=== PATIENT | male | born 1960 | race Caucasian/White ===

== ENCOUNTER → 2024-03-16 | Outpatient (CLI) | payer BC, SELFPAY | END | disposition home or self-care (01) | PROVIDERS: PCP Nurse Practitioner Adult Health; Referring Provider Nurse Practitioner; Visit Provider Nurse Practitioner | DX: R97.20 Elevated prostate specific antigen [PSA] (principal) | CPT/HCPCS: 36415; 84153 ==

== ENCOUNTER → 2024-04-01 | Outpatient (CLI) | payer BC, SELFPAY ==
--- NOTE | 2024-04-01 | IMM_PTH ---
PATIENT: JV GALINDO LOC: BLACK U#:[id number] AGE/SX: 64/M ROOM: RE04/01/[address]: Dr. Dillon Arredondo MD : 1960 BED: DIS: 04/01/2024 SPEC #: [id number] RECD: 04/05/24 11:19 STATUS: SOUKishor REQ #: [id number] LYNDSEY: 04/01/24 00:[address]: Dillon Arredondo DEPT: IMMUNOHISTOCHEMISTRY RECD BY: Jaylen Perez ENTERED: 04/05/24 11:20 SP TYPE: IMMUNO OTHR DR: NATHAN HERMOSILLO Tissues: A - PROSTATE RIGHT D - PROSTATE LEFT E - PROSTATE LEFT F - PROSTATE LEFT Procedures: 34BE12 (add) P40 (add) P40 (initial) PHYSICIAN & INSTITUTION [place] [id number] SPECIMEN INFORMATION: Tissue Source: A- Prostate right apex, D- Prostate left apex, E- Prostate left mid, F- Prostate left base Clinical Info: Elevated PSA Specimen Number: [id number] A, D, E, F CPT code: 33553,20083n7 METHODOLOGY: Deparaffinized sections of prefer/formalin-fixed tissue or PAP/DQ stained slides are incubated with monoclonal/polyclonal antibodies/oligonucleotide probes. Localization is made via biotin free immunoperoxidase method. Appropriate controls are performed and reacted as expected. Results on target cell population are indicated in the following table: RESULTS: ANTIBODY / CLONE RESULT Block A P40 (BC28) negative 34BE12 (34BE12) negative Block D P40 (BC28) negative 34BE12 (34BE12) negative Block E P40 (BC28) negative 34BE12 (34BE12) negative Block F P40 (BC28) negative 34BE12 (34BE12) negative These tests were developed and their performance characteristics determined by [facility]. They may not have been cleared or approved by the U.S. Food and Drug Administration. The FDA has determined that such clearance or approval is not necessary. The above immunohistochemical/dualISH markers are ordered and reviewed by the Pathologist. INTERPRETATION: A. Prostate, right apex, core biopsy: Adenocarcinoma. D. Prostate, left apex, core biopsy: Adenocarcinoma. E. Prostate, left mid, core biopsy: Adenocarcinoma. F. Prostate, left base, core biopsy: Adenocarcinoma. AM/mr 04/06/2024
--- NOTE | 2024-04-01 08:00 | PROSBIL_PTH ---
PATIENT: JV GALINDO LOC: BLACK U#:[id number] AGE/SX: 64/M ROOM: RE04/01/[address]: Dr. Dillon Arredondo MD : 1960 BED: DIS: 04/01/2024 SPEC #: [id number] RECD: 04/02/24 08:09 STATUS: INDIRA RESotero #: [id number] LYNDSEY: 04/01/24 08:[address]: Dillon Arredondo DEPT: SURGICAL PATHOLOGY RECD BY: Halle Vasquez ENTERED: 04/02/24 08:09 SP TYPE: PROST BX KEVIN DR: NATHAN HERMOSILLO Tissues: A - PROSTATE RIGHT B - PROSTATE RIGHT C - PROSTATE RIGHT D - PROSTATE LEFT E - PROSTATE LEFT F - PROSTATE LEFT Procedures: PROSTATE BX HEADER OPERATION: Prostate biopsy PRE-OP DIAGNOSIS: Elevated PSA TISSUE SUBMITTED: A - Right apex, B - Right mid, C - Right base, D - Left apex, E - Left mid, F - Left base MICROSCOPIC DIAGNOSIS A. Right prostate, apex, core biopsy: Adenocarcinoma. Maynor grade: 4+3 (7) Cores involved: 1/1 Tissue involved: 35% Greatest tumor length: 3.5 millimeters See comment. B. Right prostate, mid, core biopsy: Adenocarcinoma. Maynor grade: 3+3 (6) Cores involved: / Tissue involved: 65% Greatest tumor length: 4.5 millimeters Perineural invasion- Present C. Right prostate, base, core biopsy Bening prostate tissue. D. Left prostate, apex, core biopsy: Adenocarcinoma. Maynor grade: 3+4 (7) Cores involved: 2/ Tissue involved: 60% Greatest tumor length: 3.1millimeters See comment. E. Left prostate, mid, core biopsy: Adenocarcinoma. Maynor grade: 3+4 (7) Cores involved: / Tissue involved: 50% Greatest tumor length: 5.0millimeters See comment. F. Left prostate, base, core biopsy: Adenocarcinoma. Clanton grade: 3+4 (7) Cores involved: / Tissue involved: 50 % Greatest tumor length: 3.1millimeters See comment. AM/ 04/05/2024 COMMENT A, D, E, F. Immunohistochemistry ([id number]) supports the above diagnosis. Case has been reviewed in consultation with Dr. Garcia who concurs with the above diagnosis. IDC:SJ MICROSCOPIC DESCRIPTION Slides are reviewed. GROSS DESCRIPTION A - Received is one container designated prostate, right apex. The specimen consists of one elongated fragments of light dumont-white soft tissue measuring 1.5 cm in length and 0.1 cm in diameter. The specimen is totally submitted in one cassette. B - Received is one container designated prostate, right mid. The specimen consists of one elongated fragments of light dumont-white soft tissue measuring 0.9 cm in length and 0.1 cm in diameter. The specimen is totally submitted in one cassette. C - Received is one container designated prostate, right base. The specimen consists of one elongated fragments of light dumont-white soft tissue measuring 1.2 cm in length and 0.1 cm in diameter. The specimen is totally submitted in one cassette. D - Received is one container designated prostate, left apex. The specimen consists of two elongated fragments of light dumont-white soft tissue measuring 0.3 and 0.4 cm in length and 0.1 cm in diameter. The specimen is totally submitted in one cassette. E - Received is one container designated prostate, left mid. The specimen consists of one elongated fragments of light dumont-white soft tissue measuring 1.0 cm in length and 0.1 cm in diameter. The specimen is totally submitted in one cassette. F - Received is one container designated prostate, left base. The specimen consists of one elongated fragments of light dumont-white soft tissue measuring 0.9 cm in length and 0.1 cm in diameter. The specimen is totally submitted in one cassette. / BETHANY/ 04/02/2024 TC:0 [facility]: [id number]
== END | disposition home or self-care (01) ==
LOC: LABSPEC 15:38
PROVIDERS: PCP Nurse Practitioner Adult Health; Referring Provider Urology; Visit Provider Urology
DX: C61 Malignant neoplasm of prostate (principal); R97.20 Elevated prostate specific antigen [PSA]
CPT/HCPCS: 88305; 88341; 88342; G0416

== ENCOUNTER → 2024-04-15 | Outpatient (CLI) | payer BC, SELFPAY ==
--- NOTE | 2024-04-15 08:03 | NM_ITS ---
CLINICAL: 64-year-old male with history of primary prostate carcinoma. WHOLE BODY 99m Tc MDP RADIONUCLIDE BONE SCINTIGRAPHY COMPARISON: None available FINDINGS: Following the intravenous administration of 26.4 mCi of 99m Tc MDP, whole body bone images reveal: 1. Increased tracer uptake is noted in the mid cervical spine posteriorly on the right, the first and second and fourth and fifth thoracic vertebra, the second and fourth lumbar vertebra, the bilateral knees, the left ankle, the right midfoot, the visualized portion of the right wrist, the acromioclavicular and sternoclavicular compartments of both shoulders. 2. The remaining skeletal structures are scintigraphically unremarkable with normal-appearing renal images and urinary bladder activity identified. The left lower extremity at the level of the mid tibial diaphysis demonstrates mild soft tissue hyperemia and asymmetric edema. NM/Bone Scan Whole Body IMPRESSION: 1. The increase in tracer uptake noted in the bilateral shoulders, the cervical, thoracic and lumbar spine, both knees, the left ankle, the right midfoot and right wrist is commensurate with degenerative arthropathy. 2. Soft tissue edema and hyperemia apparent in the left lower extremity may represent a presentation of soft tissue inflammation (cellulitis). Clinical examination is recommended. 3. There is no definitive scintigraphic evidence of skeletal metastatic disease on the present examination. Electronically Signed: Moses King DO at 10:26 EDT ,
== END | disposition home or self-care (01) ==
LOC: NM 08:03
PROVIDERS: PCP Nurse Practitioner Adult Health; Referring Provider Urology; Visit Provider Urology
DX: C61 Malignant neoplasm of prostate (principal)
CPT/HCPCS: 78306; A9503

== ENCOUNTER → 2024-04-21 | Outpatient (CLI) | payer BC, SELFPAY ==
--- NOTE | 2024-04-21 15:58 | CT_ITS ---
STUDY: CT ABDOMEN AND PELVIS WITH CONTRAST REASON FOR EXAM: Male, 64 years old. PROSTATE CA RADIATION DOSAGE (If Supplied By Facility): CTDIvol = ( 18.24 ) mGy, DLP = ( 1246.13 ) mGycm TECHNIQUE: Transaxial images were obtained from the dome of the diaphragm to the symphysis pubis without oral contrast. IV 100mL Isovue-370 was administered. Sagittal and coronal images were reconstructed. Individualized dose optimization techniques were used for this CT. COMPARISON: None. FINDINGS: The visualized lung bases are unremarkable. Coronary calcification. There is decreased attenuation of the liver consistent with steatosis. There are multiple gallstones. Normal spleen. Normal pancreas. Normal bilateral adrenal glands. Normal right kidney. Normal left kidney. There is a small hiatal hernia. Normal small intestine. There are multiple colonic diverticula consistent with diverticulosis. The appendix is visualized and appears normal. There is scattered atherosclerotic calcification of the abdominal aorta, without a demonstrated aneurysm. Normal inferior vena cava. Normal retroperitoneum. Normal urinary bladder. There are prostatic calcifications. There is a right-sided inguinal hernia containing adipose tissue. There are diffuse degenerative changes of the visualized lumbar spine. CT/Abdomen/Pelvis W IV Cont ONLY IMPRESSION: Fatty infiltration of the liver. Multiple gallstones. Prostatic calcification. Electronically Signed: Mazni Lyons MD at 11:19 EDT ,
[2024-04-21 16:26] LABS: CREATININE FINGERSTICK < 1.0 mg/dL (0.70-1.30); EGFR FINGERSTICK > 60.0000 mL/min (>60)
== END | disposition home or self-care (01) ==
LOC: CT 15:53
PROVIDERS: PCP Nurse Practitioner Adult Health; Referring Provider Urology; Visit Provider Urology
DX: C61 Malignant neoplasm of prostate (principal)
CPT/HCPCS: 74177; Q9967

== ENCOUNTER 2024-05-21 06:36 | Day surgery (SDC) | payer BC, SELFPAY ==
[2024-05-21] VITALS (13 sets, daily range): BP systolic 77–128; BP diastolic 52–75; PULSE 59–77; RESP 16; TEMP 36.1–36.6; O2SAT 88–99; BMI 33.2
[2024-05-21] MEDS: Lactated Ringers 1,000 ML 15 ML IV (07:00)
--- NOTE | 2024-05-21 07:23 | PRE.ANES_ITS ---
ASA Classification* ASA Classification ASA Classification: 2 Assessment & Plan Anesthesia* Anesthesia Assessment Anesthesia Assessment: Discussed sedation and/or anesthesia options, risks, benefits, and alternatives with patient/parents/legal guardian/POA. Questions invited. The patient/parents/legal guardian/POA seems to understand and agrees to proceed with anesthesia plan. Reviewed the physical assessment, medical history, allergy history and patient home medications list prior to surgery/procedure/anesthetic and documented any changes. Performed airway and anesthesia risk assessments. 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 When Was Last Pacemaker Check QUESTION #4 FULL TEXT: You/Your Family Experience fever (hyperthermia) with Anesthesia Last Oral Intake Last Oral intake: Last Oral Intake NPO since 21:30 05/21/24 07:07 Meds taken in AM with sips of Yes 05/21/24 07:07 water? 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 Female No 05/19/24 09:51 HX of Motion Sickness No 05/19/24 09:51 HX of N/V After Surgery No 05/19/24 09:51 Non-Smoker Yes 05/19/24 09:51 Duration of Surgery greater Yes 05/19/24 09:51 than 60 minutes Number of Risk Factors 2 05/19/24 09:51 PONV Score Moderate Risk 05/19/24 09:51 Height & Weight Height & Weight: Anesthesia: Height & Weight Height 5 ft 10 in 05/21/24 07:07 Weight: 105 kg 05/21/24 07:07 Body Mass Index (BMI) 33.2 05/21/24 07:07 Respiratory Assessment Respiratory Assessment - tractor sweeper driver: Respiratory Tract Infection Hx - 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 Has anyone observed you stop No 05/19/24 09:51 breathing during sleep? STOP Results Negative 05/19/24 09:51 QUESTION #5 FULL TEXT : Do you snore loudly (louder than talking or can be heard through closed doors)? 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 Specify any problems Hx of Preganancy in last 3 N/A 05/19/24 09:51 Months Nurse Filling Out Transfusion VCHRISTIN 05/19/24 09:51 & Questions: Date: 05/19/24 05/19/24 09:51 Time: 09:52 05/19/24 09:51 Patient unable to answer at this time (ie. 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: /Reproductive Hx- tractor sweeper driver Hx Now Gestational Age (in weeks): EDC: Hx Hx Para Hx Section SAB Active Medications Active Medications: Current Medications Generic Name Dose Route Start Last Admin Trade Name Freq PRN Reason Stop Dose Admin Cefazolin Sodium 2 gm/ Sodium 110 mls @ 150 mls/hr 05/21/24 15:25 Chloride IV 05/21/24 16:08 PREOP ONE Lactated Ringer's 1,000 mls @ 15 mls/hr 05/21/24 07:00 05/21/24 07:00 IV 15 mls/hr .Q48H EMANUEL Administration PFSH Medical History Wears glasses DVT (deep venous thrombosis) Non-smoker Cerebral contusion Phlebitis and thrombophlebitis of other deep vessels of unspecified lower extremity Hyperlipidemia Hypertension Elevated PSA Home Medications ?Medication ?Instructions ?Recorded ?Last Taken ?Type lisinopril 10 mg tablet 10 mg PO DAILY 04/21/24 05/21/24 History rivaroxaban 20 mg tablet (Xarelto) 20 mg PO DAILY 04/21/24 05/18/24 History Allergy/AdvReac Type Severity Reaction Status Date / Time No Known Allergies Allergy Verified 05/21/24 07:04 Family History Mother Heart disease Father Parkinson disease Surgical History Hx of tonsillectomy History of hemorrhoidectomy Social History Smoking Status: Never smoker alcohol intake: never substance use type: does not use Review of Systems (Anesthesia) ROS Narrative System reviewed and no additional complaints, except as documented.
--- NOTE | 2024-05-21 08:23 | DCINST_ITS ---
Discharge Instructions Diet Discharge Diet: No restrictions Activity Discharge Activity: Return to Normal Activity and May Not Drive (while taking narcotic pain medications.) Dressing / Incision Call your doctor if you observe: Fever of 101 or Higher Follow Up Care Please Follow Up With: Dillon Arredondo MD When: Call [phone] for an appointment Test Results: Test results from this visit will be discussed in further detail at your follow- up appointment, if applicable. Discharge Plan Admission Attending Provider: Dillon Arredondo Primary Care Provider: BRITTANY DOWELL Instructions Print Language: Bengali Discharge Orders/Prescriptions Prescriptions: No Action lisinopril 10 mg tablet 10 mg PO DAILY Xarelto 20 mg tablet 20 mg PO DAILY Rx Instructions: must administer with evening meal Referrals / Follow Up: BRITTANY DOWELL CRNP [Primary Care Provider] - Disposition Disposition (needs filled in before D/C Order can be placed): Home, Self Care
--- NOTE | 2024-05-21 08:23 | PCM.HP.STD ---
HPI - General General Date of Service: 05/21/24 Chief Complaint: Prostate cancer HPI Narrative JV GALINDO, is a 64 M who presents for placement of gold markers and spacer gel for treatment of prostate cancer and planning to treat with radiation therapy [facility] Medical History Wears glasses DVT (deep venous thrombosis) Non-smoker Cerebral contusion Phlebitis and thrombophlebitis of other deep vessels of unspecified lower extremity Hyperlipidemia Hypertension Elevated PSA Home Medications ?Medication ?Instructions ?Recorded ?Last Taken ?Type lisinopril 10 mg tablet 10 mg PO DAILY 04/21/24 05/21/24 History rivaroxaban 20 mg tablet (Xarelto) 20 mg PO DAILY 04/21/24 05/18/24 History Allergy/AdvReac Type Severity Reaction Status Date / Time No Known Allergies Allergy Verified 05/21/24 07:04 Family History Mother Heart disease Father Parkinson disease Surgical History Hx of tonsillectomy History of hemorrhoidectomy Social History Smoking Status: Never smoker alcohol intake: never substance use type: does not use Vital Signs Vital Signs Vital Signs: 05/21/24 07:07 05/21/24 07:07 05/21/24 07:23 Temperature 97.3 F L 97.3 F L Temperature Source Temporal Pulse Rate 77 77 Respiratory Rate 16 16 Respiratory Pattern Normal Blood Pressure 113/75 113/75 Blood Pressure Mean 87 Blood Pressure Source Monitor Blood Pressure Position Sitting Blood Pressure Location Right Arm Pulse Ox 99 99 Oxygen Delivery Method Room Air Weight Weight: 105 kg Body Mass Index (BMI) 33.2
--- NOTE | 2024-05-21 08:25 | PCM.OPRPT ---
Report of Operation Date of Procedure: 05/21/24 Pre-Operative Diagnosis: prostate cancer Post-Operative Diagnosis: prostate cancer Surgery/Procedure Performed:: placement of gold markers and spacer gel Description of Surgical Findings:: In the preoperative area I reviewed with the patient how the procedure is done we talked about the risk of the procedure including the risk of infection, bleeding, migration of the spacer gel, the patient is planning to have radiation to the prostate he understands that the spacer gel has demonstrated benefit in reducing the risk of toxicity from the ration radiation to the rectum but there is no guarantees that this spacer gel will prevent any serious complications or toxicity to the rectum or bowels. After reviewing this with the patient and his family organ to proceed with placement of a spacer gel matrix. Patient was taken back to the operating room after smooth induction of anesthesia he was placed supine on the table. The genitals and perineum were prepped and draped in usual sterile fashion. I then introduced a biplanar ultrasound probe into the rectum and performed ultrasonography and identified the Denonvilliers' fascia the prostate mid base and apex and seminal vesicles. The spacer gel mix was then prepared on the back table per manufactures instruction. Under ultrasound guidance in the midline perineum a bevel needle down we advanced through the perineum below the prostate into the space of Denonvilliers' fascia. This space which could be identified by ultrasound with a bright white layer between the prostate and the rectum. I then injected a puff of normal saline to identify the space further. After I confirmed that the needle was in the correct space in the mid prostate and the space of Denonvilliers' fascia between the rectum and the prostate. Then over the course of 15 seconds the gel matrix was injected slowly there was nice separation between the prostate and the rectum at the gel matrix was injected. The position of the gel matrix was confirmed by ultrasound. Then the injection needle was removed intact. Then, the penis and testicles were prepped and draped in usual sterile fashion, ultrasound probe was placed into the rectum and biplanar ultrasound was performed on the prostate. Identified the base mid and apex of the prostate identified the transition zone prostate. Then using a needle the first furniture restorer was placed into the right base of the prostate, the second furniture restorer was placed in the left base of the prostate, and the third core marker was placed in the right apex of the prostate after all 3 markers were placed the placement of the markers were confirmed by ultrasonography. Surgeon: Dillon Arredondo Type of Anesthesia: General Estimated Blood Loss (mL): 0 Admit VTE Documentation VTE Present on Admission: No VTE Mechan Device Prophylaxis: SCD's VTE Pharm Prophylaxis ordered?: No
[2024-05-21] MEDS: Cefazolin 2 GM in 0.9% Normal Saline (100mL Bag) 100 ML IV (08:55)
--- NOTE | 2024-05-21 09:48 | PCM.POST.ANE ---
Anesthesia: Postop Eval I Current Vital Signs Temperature: 97.6 F Pulse Rate: 66 Blood Pressure: 79/57 Respiratory Rate: 16 Pulse Ox: 94 Oxygen Delivery Method: Room Air Assessment Airway patent: Yes Spontaneous unlabored respirations: Yes Mental status: Awake and Calm nausea: No Vomiting: No Anesthesia Complication: No Fluid Hydration Crystalloid volume administer (ml): 500 Total IV fluid infused: 500 Progress Note Anesthesia document: Postop Eval 1 completed: Yes
[2024-05-21] MEDS: Ketorolac 15 MG/ML Vial IV (09:56)
[2024-05-21] MEDS: Lactated Ringers 1,000 ML 75 ML IV (09:58)
--- NOTE | 2024-05-21 15:42 | POSTOPAN2_ITS ---
Anesthesia Postop Eval I Sum Postop Eval Completion status Anesthesia document: Postop Eval 1 completed: Yes Anesthesia Postop Eval I Summary Anesthesia Postop Eval I Summary: Anesthesia Postop Eval I: Assessment Summary Airway patent Yes 05/21/24 09:49 PEDIATRIC CRITICAL CARE NURSE.[email or web address] Spontaneous unlabored Yes 05/21/24 09:49 PEDIATRIC CRITICAL CARE NURSE.[email or web address] respirations Mental status Awake,Calm 05/21/24 09:49 PEDIATRIC CRITICAL CARE NURSE.[email or web address] nausea No 05/21/24 09:49 PEDIATRIC CRITICAL CARE NURSE.[email or web address] Vomiting No 05/21/24 09:49 PEDIATRIC CRITICAL CARE NURSE.[email or web address] Anesthesia Postop Eval I: Fluid Summary Crystalloid volume administer 500 05/21/24 09:49 PEDIATRIC CRITICAL CARE NURSE.[email or web address] (ml) Colloids volume administered ( ml) Blood Product volume administered (ml) Total IV fluid infused 500 05/21/24 09:49 PEDIATRIC CRITICAL CARE NURSE.[email or web address] Anesthesia Postop Eval I: Summary Notes Anesthesia Complication No 05/21/24 09:49 PEDIATRIC CRITICAL CARE NURSE.KIM Anesthesia Complication Comment: Post-operative progress note Anesthesia: Postop Eval II Evaluation Mental status: Awake Pain Level: 0 nausea: No Vomiting: No
--- NOTE | 2024-05-21 15:42 | PCM.POSTANE2 ---
Anesthesia Postop Eval I Sum Postop Eval Completion status Anesthesia document: Postop Eval 1 completed: Yes Anesthesia Postop Eval I Summary Anesthesia Postop Eval I Summary: Anesthesia Postop Eval I: Assessment Summary Airway patent Yes 05/21/24 09:49 DUAL RATE DEALER.[email or web address] Spontaneous unlabored Yes 05/21/24 09:49 DUAL RATE DEALER.[email or web address] respirations Mental status Awake,Calm 05/21/24 09:49 DUAL RATE DEALER.[email or web address] nausea No 05/21/24 09:49 DUAL RATE DEALER.[email or web address] Vomiting No 05/21/24 09:49 DUAL RATE DEALER.[email or web address] Anesthesia Postop Eval I: Fluid Summary Crystalloid volume administer 500 05/21/24 09:49 DUAL RATE DEALER.JBLOU (ml) Colloids volume administered ( ml) Blood Product volume administered (ml) Total IV fluid infused 500 05/21/24 09:49 DUAL RATE DEALER.[email or web address] Anesthesia Postop Eval I: Summary Notes Anesthesia Complication No 05/21/24 09:49 DUAL RATE DEALER.KIM Anesthesia Complication Comment: Post-operative progress note Anesthesia: Postop Eval II Evaluation Mental status: Awake Pain Level: 0 nausea: No Vomiting: No
== END 2024-05-21 12:00 | disposition home or self-care (01) ==
LOC: SDC 06:37 → AC 06:39
PROVIDERS: PCP Nurse Practitioner Adult Health; Referring Provider Urology; Visit Provider Urology
PROC: (CPT 55874; principal; 2024-05-21 08:40)
DX: C61 Malignant neoplasm of prostate (principal); I10 Essential (primary) hypertension; Z79.01 Long term (current) use of anticoagulants; Z79.899 Other long term (current) drug therapy; Z86.718 Personal history of other venous thrombosis and embolism
CPT/HCPCS: 55876; J7120; J2405

== ENCOUNTER → 2024-06-03 | Outpatient (CLI) | payer BC, SELFPAY ==
--- NOTE | 2024-06-03 14:56 | MRI_ITS ---
EXAMINATION: MR Prostate WO/W Contrast COMPARISON: PET CT 05/18/2024 CLINICAL HISTORY: 64 yo M with history of prostate carcinoma and elevated PSA Most recent PSA = not provided TECHNIQUE: Standard prostate MR protocol was used before and after administration of 20 cc of IV Clariscan. FINDINGS: Prostate volume: 24 cc PSA density: PSA level not provided Length of membranous urethra: 13 mm Post-biopsy hemorrhage: Yes Multiparametric MR evaluation: Heterogeneous appearance of the central gland is consistent with benign prostatic hyperplasia. T2 hyperintense space OAR gel is seen posterior to the prostate. Lesion 1: LOCATION - there is an irregularly-shaped 2.2 x 1.3 x 2.5 cm moderately T2 hypointense lesion in the left and right anterior and posterior transitional zones from near base to near apex. It is mildly bright on DWI and moderately dark on ADC map. T2 - 5 DWI - 4 DCE - positive Overall PI-RADS v2 score = 5 Capsular margin and neurovascular bundle: No definite macrocapsular extension. Seminal vesicles: Not involved. Lymph nodes: 3 mm left pelvic sidewall lymph node (image 9, series 6). Bones: No suspicious lesions in the field of view. OTHER: Apparent asymmetric wall thickening of the right posterolateral upper rectum (images 7 through 10, series 10). MRI/Pelvis W/WO Contrast IMPRESSION: 2.5 cm irregular PI-RADS 5 lesion in the bilateral anterior and posterior TZ''s from mid base to mid apex. - 3 mm round left pelvic sidewall lymph node - No evidence of macroscopic extracapsular extension. - No evidence of seminal vesicle invasion. - No bladder invasion. - No suspicious bone lesions. Apparent asymmetric wall thickening of the right posterolateral upper rectum. Recommend colonoscopy. Electronically Signed: Patrick Tellez MD at 4:41 EDT ,
[2024-06-03 15:38] LABS: CREATININE FINGERSTICK < 1.0 mg/dL (0.70-1.30); EGFR FINGERSTICK > 60.0000 mL/min (>60)
== END | disposition home or self-care (01) ==
LOC: MRI 14:54
PROVIDERS: PCP Nurse Practitioner Adult Health; Referring Provider Student in an Organized Health Care Education/Training Program; Visit Provider Student in an Organized Health Care Education/Training Program
DX: C61 Malignant neoplasm of prostate (principal)
CPT/HCPCS: 72197; A9575; A4216

== ENCOUNTER → 2025-05-18 | Outpatient (CLI) | payer BC, SELFPAY ==
[2025-05-18 13:04] LABS: PSA,Total- Diagnostic < 0.02 ng/mL (0.00-4.00)
== END | disposition home or self-care (01) ==
LOC: LAB 11:39
PROVIDERS: PCP Nurse Practitioner Adult Health; Referring Provider Urology; Visit Provider Urology
DX: C61 Malignant neoplasm of prostate (principal)
CPT/HCPCS: 36415; 84153

== ENCOUNTER 2025-08-31 11:30 | Outpatient (RCR) | payer BC, SELFPAY ==
[2025-08-25 08:07] VITALS: BP 125/71; PULSE 93; RESP 16; TEMP 36.8; BMI 35.4
--- NOTE | 2025-08-25 12:39 | PCM.WC.HP ---
History of Present Illness Date of Service: 08/25/25 Chief Complaint: Left leg ulcer History of Wound: Mr. Gramajo is a 65-year-old who was referred to the wound center by his primary care due to left leg drainage and redness. He states that he has had swelling and redness ongoing for over a year due to history of clots. However, couple of weeks/months ago he noted increased redness and drainage. Recently seen by his PCP and was started on Augmentin and Bactrim for cellulitis. Denies any history of injury. Recently started on metformin due to elevated blood glucose levels. He was advised by his primary to leave it open and keep it elevated which he states that he has been doing. He denies chills, fever or otherwise feeling of unwell. [facility] [place] Medical History (Updated 08/25/25 @ 12:[address] Axel Yoder MD) Type 2 diabetes mellitus History of DVT of lower extremity Edema of left lower extremity Ulcer of left lower extremity with fat layer exposed Wears glasses DVT (deep venous thrombosis) Non-smoker Cerebral contusion Phlebitis and thrombophlebitis of other deep vessels of unspecified lower extremity Hyperlipidemia Hypertension Elevated PSA Home Medications ?Medication ?Instructions ?Recorded ?Last Taken ?Type lisinopril 10 mg tablet 10 mg PO DAILY 04/21/24 05/21/24 History rivaroxaban 20 mg tablet (Xarelto) 20 mg PO DAILY 04/21/24 05/18/24 History cetirizine 10 mg tablet 10 mg PO DAILY 08/25/25 Unknown History lisinopril 10 1 tab PO DAILY 08/25/25 Unknown History mg-hydrochlorothiazide 12.5 mg tablet metformin 500 mg tablet,extended 500 mg PO DAILY 08/25/25 Unknown History release 24 hr silver sulfadiazine 1 % topical applic topical BID 08/25/25 Unknown History cream Allergy/AdvReac Type Severity Reaction Status Date / Time No Known Allergies Allergy Verified 05/23/25 11:03 Family History Mother Heart disease Father Parkinson disease Surgical History Hx of tonsillectomy History of hemorrhoidectomy Social History Smoking Status: Never smoker alcohol intake: never substance use type: does not use ROS Constitutional Constitutional: Denies body ache(s), change in weight, fatigue, fever(s), frequent falls, headache(s), increased appetite or poor appetite Eyes Eyes: Denies blind spots, bloody eye, change in eye color, change in vision, discharge from eye(s), discongugate gaze or double vision ENT HEENT: Denies dysphagia, facial pain, foreign body in nose, halitosis, hearing loss, hoarseness, lip swelling or loss taste/smell Cardiovascular Cardiovascular: Denies abdominal edema, abdominal pain, cold extremities, cyanosis, diaphoresis, dizziness or dyspnea at rest Respiratory/Chest Respiratory/Chest: Denies change in phlegm color, chest congestion, chest tightness, difficulty clearing secretions, dry cough, dusky skin, hemoptysis or hoarseness Gastrointestinal Gastrointestinal: Denies change in bowel habits, chewing difficulty, constipation, cramping, diarrhea, dry heaves, excessive flatus or fecal incontinence Genitourinary Genitourinary: Denies abdominal discomfort, anuria, burning urination, contractions or flank pain Musculoskeletal Musculoskeletal: Reports limited range of motion; Denies deformity, muscle spasms, muscle weakness, tingling or tremors Integumentary Integumentary: Reports non-healing lesions, skin ulcer and skin swelling; Denies hirsutism or jaundice Neurologic Neurologic: Denies abnormal movements, abnormal speech, behavior changes, disequilibrium, dizziness, focal weakness, frequent falls, headache(s), lack of coordination or loss of vision Psychiatric Psychiatric: Denies auditory hallucinations, behavioral changes, difficulty concentrating, hallucinations, hopelessness, mood swings or panic attacks Endocrine Endocrinology: Denies cold intolerance, deepening of the voice, excessive sweating, flushing, increase in ring/shoe/hat size or palpitations Allergic/Immunologic Allergic/Immunologic: Denies lip swelling, rhinitis, throat swelling, tongue swelling, hives, urticaria or wheezing Vital Signs Vital Signs Vital Signs: 08/25/25 08:07 Temperature 98.2 F Temperature Source Oral Pulse Rate 93 Respiratory Rate 16 Blood Pressure 125/71 H Blood Pressure Mean 89 Blood Pressure Source Monitor Blood Pressure Position Sitting Blood Pressure Location Left Arm Oxygen Delivery Method Room Air Weight Weight: 240 lb Body Mass Index (BMI) 35.4 Physical Exam Const alert, oriented x3 and no apparent distress General Appearance: cooperative, comfortable and well kempt HEENT normocephalic and head/scalp atraumatic Eyes EOMs intact bilaterally General Eye: normal appearance of both eyes Neck full ROM General: normal visual inspection Resp normal respiratory effort and normal air movement Effort and Inspection: able to speak in complete sentences Cardio regular rate, regular rhythm, S1 normal heart sound and S2 normal heart sound GI soft to palpation and non-tender Extremity General Extremity: edema Skin Wounds: wounds noted size Size: See clinical note, bed with slough, edematous, necrotic and with undermining, margins poorly approximated, no odor, open and surrounding erythema Neuro oriented x3, CN's II-XII intact bilaterally, moves all extremities and no focal motor deficits Psych mental status grossly normal, thought process normal, cooperative and affect normal Debridement Note Debridement Note Wound debrided: Left samuels Type of Debridement: Excisional debridement Anesthesia Used: 5% Lidocaine Gel Depth: Down to and including healthy tissue and in the subcutaneous layer Percentage of wound debrided: 100 Instrument Used: 5mm curette Tissue Removed: Slough and devitalized tissue Severity: Fat Layer Exposed Amount of bleeding with debridement: Mild Bleeding Controlled with: Pressure Patient tolerated procedure: Patient tolerated procedure well Post-Debridement Measurements and Additional Note: Post-Debridement Measurements/Treatment - Nurse 1 - General Ulcer Assessment Start: 08/25/25 08:06 Freq: Status: Active Protocol: JANNY Activity Type Activity Date Activity User E-sign Co-sign Detail Recorded Client Recorded Date Recorded By Document 08/25/25 08:07 [id number] 08/25/25 08:23 08/25/25 08:07 - Today's Visit Information Type of service Initial Visit Arrival Mode Ambulatory Patient Identification Verified (Name & Yes ) Patient Requires Transmission-Based No Precautions Safety Precautions Fall Prevention Height and Weight Height 5 ft 9 in Weight 240 lb Weight in Pounds 240.0 lbs Weight Measurement Method Estimated by Patient Body Mass Index (BMI) 35.4 BMI Classification Obese Vital Signs Temperature (97.8 F-99.1 F) 98.2 F Temperature Source Oral Pulse Rate (60-100) 93 Pulse Location Monitor Respiratory Rate (12-18) 16 Respiratory rate source Observation Oxygen Delivery Method Room Air Blood Pressure (90/60-120/80) 125/71 H Blood Pressure Mean 89 Source Monitor Position Sitting Blood Pressure Location Left Arm History Since Last Visit- (Skip if this is Patient's initial visit) Left Footwear Regular Shoe Right Footwear Regular Shoe Pain Scale: 0-10 Numeric Is Patient Pain Free? Yes Lower Extremity Assessment/ Foot Assessment/ Toe Nail Assessment Left -Polpliteal Pulses Palpable Yes -Posterior Tibial Palpable Yes -Dorsalis Pedis Palpable Yes -Extremity Color Normal -Hair Growth on Legs Yes -Hair Growth on Toes Yes -Temperature of Extremity Warm -Capillary Refill Less than 3 Seconds -Other Deformity No -Prior Foot Ulcer No -Charcot Joint No -Prior Amputation No -Thick No -Discolored No -Deformed No -Improper Length & Hygeine No Neuropathy Assessment Feet - Top Side and Bottom <Entered> (a) Communication Assessment Supervisor Paint Required No Able to Read Yes Able to Write Yes Communication Tools None Caregiver Communication Skills No Impairment Impairment Right Hearing Abillity Normal Left Hearing Abillity Normal Visual Assistive Devices Glasses Teaching Assessment Preferences Verbal, Demonstration Barriers to Learning None Readiness To Learn Excellent Willingness to Engage in Self Management High Activies Readiness to Engage in Self Management High Activities Anxiety Level Calm Cooperation Cooperative Perception Coherent Interest in Health Problem Asks Questions Education Importance Acknowledges Need Does Patient Smoke tobacco or other No substances Functional Assessment Recent Decline in Ability to Perform Denies Any Declines Culture/Muslim/Transcription Manager Cultural/Muslim Needs that may affect No Treatment Plan Would you allow our hospital cuff knitter to No meet you for the purpose of spiritual/ emotional support? Transcription Manager to contact place of catholic No (a) 1 - + WC - Nurse 1 - General Ulcer Measurement Start: 08/25/25 08:06 Freq: Status: Active Protocol: Activity Type Activity Date Activity User E-sign Co-sign Detail Recorded Client Recorded Date Recorded By Document 08/25/25 08:07 [id number] 08/25/25 08:23 TS 08/25/25 08:07 Wound Center Nurse 1 #1 LLE ANTERIOR -Combined with other wound No -Current Size (cm) - Length 5.5 -Current Size (cm) - Width 3 -Current Size (cm) - Depth 0.1 -Total Square Cm 16.5 -Date of Last Picture (Recall this 08/25/25 field) -Photo Taken Yes -Undermining/Tunneling No -Circular Undermining No -Exudate Amt Medium -Exudate Type Yellow/Green -Wound Margin Distinct, Outline Attached -Necrosis Amt Large (67-100%) -Necrotic Tissue Type Adherent Slough -Structure Exposed Fascia -Texture (Becca-wound Skin Appearance) Assessed, Excoriation -Moisture (Becca-wound Skin Appearance) Assessed -Color (Becca-wound Skin Appearance) Assessed -Temperature (Becca-wound Skin No Abnormality Appearance) (Pt Warm) -Ulcer Cleansing Soap and Water -Foul Odor after Cleansing No -Anesthetic Used 5% Lidocaine Gel Point of measurement (cm from the medial 37 instep) Point of Measurement (cm from the medial 23 instep) Point of measurement (cm from the medial 43 instep) Point of Measurement (cm from the medial 27 instep) WC - Nurse 2 - General Ulcer CM Notes Start: 08/25/25 08:06 Freq: Status: Active Protocol: Activity Type Activity Date Activity User E-sign Co-sign Detail Recorded Client Recorded Date Recorded By Document 08/25/25 08:48 [id number] 08/25/25 09:00 08/25/25 08:48 Wound Center Nurse 2 #1 LLE ANTERIOR -Time 08:48 -Correct Patient Yes -Correct Side, Site, Position Yes -Correct Procedure Yes -Procedure Performed Yes -Type of Procedure Debridement -Clinical Debridement Subcutaneous -Tissue Removed Subcutaneous -Post Debridement (cm) - Length 2.0 -Post Debridement (cm) - Width 2.0 -Post Debridement (cm) - Depth 1.0 -Total Square (Post) (cm) 4.00 -Area of Debridement (cm) - Length 2.0 -Area of Debridement (cm) - Width 2.0 -Total Square (Area) (cm) 4.00 -Tunneling Yes -Tunneling Position (O'clock) 12 -Tunneling Distance (cm) 4 -Circular Undermining Yes -Wound/Ulcer Outcome Not Healed -Ulcer Cleansing Rinsed/ Irrigated with Saline -Foul Odor after Cleansing No -Bioengineered Tissue No -Bleeding Controlled with Pressure -Treatment Response Procedure Tolerated Well -Offloading No -Debridement - Subq, 1st 20sq cm Yes Pain Scale: 0-10 Numeric Is Patient Pain Free? Yes [id number] - Nurse 3 - General Ulcer D/C NN Start: 08/25/25 08:06 Freq: Status: Active Protocol: Activity Type Activity Date Activity User E-sign Co-sign Detail Recorded Client Recorded Date Recorded By Document 12/18/25 09:31 [id number] 08/25/25 09:32 TS 08/25/25 09:31 Wound Care Center Nurse 3 #1 LLE ANTERIOR -Ulcer Cleansing Rinsed/ Irrigated with Saline -Primary Dressing Applied Aquacel AG 4x4, NonAdherent Contact Layer -Other Dressing ABD -Primary Dressing Covered/Secured with Secured with Tape -Aquacel AG 4x4 1 BLE -Tubular Bandage Double Layer -Size of Tubigrip Used Size E -Size E ($) 2 Pain Scale: 0-10 Numeric Is Patient Pain Free? Yes WC - Visit Discharge Discharge Condition Stable Ambulatory Status Ambulatory Transportation Private Auto Medication Reconcilliation completed & No provided to patient/care provider Clinical Summary of Care Provided Yes Charges/Coding Visit Charges Office Visits / Consults: [id number] OV L4 New 45min Procedures Integumentary [id number]: [id number] Danelle subq tissue 20 sq cm/< Assessment/Plan Assessment/Plan (1) Ulcer of left lower extremity with fat layer exposed: CODE(S): L97.922 - Non-pressure chronic ulcer of unspecified part of left lower leg with fat layer exposed (2) Edema of left lower extremity: CODE(S): R60.0 - Localized edema (3) History of DVT of lower extremity: CODE(S): Z86.718 - Personal history of other venous thrombosis and embolism (4) Type 2 diabetes mellitus: CODE(S): E11.9 - Type 2 diabetes mellitus without complications PLAN: Plan Debridement done as documented above, procedure was well-tolerated. Some purulence noted with debridement however, no further purulent drainage following debridement. Cultures taken. As above he states that he is currently on Bactrim and Augmentin and has taken it so far for about 4 days. Not applying anything to the area and leaving it open to air and trying to keep it up/elevated. Concern for surrounding tissue injury that may require/surgical debridement however will evaluate closely for now. Apply Aquacel Ag daily, cover with Adaptic and foam dressing. Double layer Tubigrip for edema management. Concern for possible post DVT syndrome due to significant left lower extremity edema. Venous and arterial studies ordered, will review due to proximity to the bone and chronicity, an x-ray also ordered to rule out osteomyelitis. He states that he was recently started on metformin by his primary care due to diabetes, he believes he had labs done recently as well. Will request records. Compliance with dressing changes discussed. Optimal protein intake, compression and leg elevation also discussed, he voiced understanding. His questions were answered, he was advised to let us know if he had any further questions or concerns. Follow-up for a courtesy visit next week and in 3 weeks with me. This note was generated with Dr. Z dictation software. It may contain incorrect words, spelling, and punctuation that were not noted in checking the note before signing.
--- NOTE | 2025-08-26 08:50 | ART_ITS ---
Reason For Study Reason For Study: Ulcer Procedure A bilateral lower extremity continuous wave Doppler with analog waveform analysis,segmental pressures,and ankle brachial indexes without exercise. Left Segmental Pressures Left brachial= 121mmHg. Left posterior tibial artery = 164mmHg. Left dorsalis pedis artery = 158mmHg. Left digit = 105 mmHg. The left dorsalis pedis waveforms are triphasic. The left posterior tibial artery waveforms are triphasic. Right Segmental Pressures Right brachial= 113mmHg. Right posterior tibial artery = 150mmHg. Right dorsalis pedis artery = 148mmHg. Right digit = 102 mmHg. The right dorsalis pedis waveforms are triphasic. The right posterior tibial artery waveforms are triphasic. Indices The right ankle brachial index by the dorsalis pedis is 1.22. The right ankle brachial index by the posterior tibial artery is 1.24. The right digital-brachial index is 0.84. The left ankle brachial index by the dorsalis pedis is 1.31. The left ankle brachial index by the posterior tibial artery is 1.36. The left digital-brachial index is 0.87. VL/Lower Ext Art Exam w/o Exercis Interpretation Summary Triphasic Doppler waveforms are noted at ankle level bilaterally. Pulse-volume recordings appear diminished at digital level bilaterally, but satisfactory at all other levels bilaterally. Resting an kle-brachial indices are normal bilaterally. Digital-brachial indices are normal bilaterally. There is no evidence of significant arterial occlusive disease in the lower ext remities bilaterally. Ordering Physician: Axel Yoder Referring Physician: Minerva Gross Performed By: Jacqueline Kwan RVT
--- NOTE | 2025-08-26 08:50 | VDLE_ITS ---
Reason For Study Reason For Study: Ulcer RIGHT LEFT CFV is compressible, spontaneous, phasic, competent CFV is compressible, spontaneous, phasic, competent, and demonstrates normal augmentation. and demonstrates normal augmentation. FV is compressible, spontaneous, phasic, competent FV is compressible, phasic, and INCOMPETENT for and demonstrates normal augmentation. greater than 1.0 second. POP V is compressible, spontaneous, phasic, competent POP V is compressible, phasic, and INCOMPETENT for and demonstrates normal augmentation. greater than 1.0 second. T/P Trunk is compressible. T/P Trunk is partially compressible with bright PTV is compressible. intralumina echoes consistent with Chronic DVT. RT PerV is compressible. PTV is compressible. SFJ is competent and measures 0.72 cm. LT PerV is compressible. GSV proximal thigh measures 0.26 x 0.28 cm. SFJ is INCOMPETENT and measures 0.78 cm. GSV at knee measures 0.09 x 0.11 cm. GSV proximal thigh measures 0.63 x 0.63 cm. GSV is competent throughout. GSV at knee measures 0.35 x 0.34 cm. ASV mid thigh is INCOMPETENT for greater than 0.5 GSV INCOMPETENT throughout for greater than 0.5 seconds and measures 0.24 x 0.25 cm. seconds. INCOMPETENT environmental geologist noted 12 cm above medial INCOMPETENT environmental geologist noted 21 cm above medial malleolus. malleolus. SSV mid calf is competent and measures 0.30 x 0.28 ASV mid thigh is INCOMPETENT for greater than 0.5 cm. seconds and measures 0.56 x 0.53 cm. Procedure SSV mid calf is competent and measures 0.31 x 0.33 This is a venous duplex using B-mode, color flow and cm. spectral Doppler. Exam performed in department. Patient was scanned in reverse Trendelenburg position during reflux assessment. Portion of left mid calf not visualized due to bandage. A preliminary report was called and/or faxed to [facility]. VL/Venous Duplex US - Yonatan Extrem Interpretation Summary Deep veins of the lower extremities are bilaterally patent and compressible seg mentally. There is no evidence of deep vein thrombosis on either side. Valvular competence appears intact within the p roximal deep venous system on the right . The left femoral vein and popliteal vein are incompetent, and chronic venous ch anges are noted in the left tibio- peroneal trunk. The great saphenous veins appear bilaterally patent and alis sible segmentally. The right sapheno- femoral junction is competent . The left sapheno-femoral junction is incompeten t . The right great saphenous vein appears segmentally competent. The left great saphenous vein appears segmentall y incompetent. Small saphenous veins are patent and competent bilaterally. The accessory saphenous vein in the right mid -thigh is incompetent. The accessory saphenous vein in the left mid-thigh is incompetent. An incompetent environmental geologist is noted in the right calf, located 12 centimeters proximal to the right medial malleolus. An incompetent environmental geologist i s noted in the left calf, located 21 centimeters proximal to the left medial malleolus. Ordering Physician: Axel Yoder Referring Physician: BRITTANY DOWELL Performed By: Jacqueline Kwan RVT
--- NOTE | 2025-08-26 09:18 | WC ---
PHOTO-LLE 08/25/25
[2025-08-31 11:43] VITALS: BP 126/67; PULSE 87; RESP 18; TEMP 36.1; BMI 35.4
--- NOTE | 2025-08-31 12:09 | PN.PCM_ITS ---
History of Present Illness Date of Service: 08/31/25 Chief Complaint: Left leg ulcer History of Wound: Mr. Gramajo is a 65-year-old who was referred to the wound center by his primary care due to left leg drainage and redness. He states that he has had swelling and redness ongoing for over a year due to history of clots. However, couple of weeks/months ago he noted increased redness and drainage. Recently seen by his PCP and was started on Augmentin and Bactrim for cellulitis. Denies any history of injury. Recently started on metformin due to elevated blood glucose levels. He was advised by his primary to leave it open and keep it elevated which he states that he has been doing. He denies chills, fever or otherwise feeling of unwell. Progress of Wound: The wound measurements are slightly larger because the tunneling area opened. It is more like a cluster now there is a top wound and then there is a bottom wound. Debrided a lot of skin around the wound and slough in the wound. Still using Aquacel Ag but said he is going to run out soon around the wound outlining like a glove appears to be [employer] and he has been putting Silvadene cream on from his primary care doctor which we told him to stop because it is not helping his skin and it is making it worse. We suggested that she he take Claritin or Zyrtec 10 mg twice a day either 1. Subjective Subjective Patient is currently taking antibiotic therapy for the infection. And seems to be confused about his care on his leg. Objective Data Objective Data Wound is open and seems to be doing okay had a lot of slough debrided out of the wound and debrided a lot of skin around the wound taken off with new skin underneath. Continue using the Aquacel Ag twice a day and Adaptic over top with a bulky dressing and then he can do a double layer Tubigrip on the leg. Vital Signs: Vital Signs Temp Pulse Resp BP O2 Del Method 97 F L 87 18 126/67 H Room Air 08/31/25 11:43 08/31/25 11:43 08/31/25 11:43 08/31/25 11:43 08/31/25 11:43 Oxygen Delivery Method Room Air Weight: 240 lb Body Mass Index (BMI) 35.4 Lab / Micro Data Micro: Microbiology 08/25/25 08:59 Wound - Leg, Left Gram Stain - Final 08/25/25 08:59 Wound - Leg, Left Wound Culture - Final Streptococcus group C 08/25/25 08:59 Wound - Leg, Left Anaerobic Culture - Final No anaerobic bacteria isolated. Physical Exam Const alert, oriented x3 and no apparent distress General Appearance: cooperative, comfortable and well kempt HEENT normocephalic and head/scalp atraumatic Eyes EOMs intact bilaterally General Eye: normal appearance of both eyes Neck full ROM General: normal visual inspection Resp normal respiratory effort and normal air movement Effort and Inspection: able to speak in complete sentences Cardio regular rate, regular rhythm, S1 normal heart sound and S2 normal heart sound GI soft to palpation and non-tender Extremity General Extremity: edema Skin Wounds: wounds noted size Size: See clinical note, bed with slough, edematous, necrotic and with undermining, margins poorly approximated, no odor, open and surrounding erythema Neuro oriented x3, CN's II-XII intact bilaterally, moves all extremities and no focal motor deficits Psych mental status grossly normal, thought process normal, cooperative and affect normal Debridement Note Debridement Note Wound debrided: Left samuels Type of Debridement: Excisional debridement Anesthesia Used: 5% Lidocaine Gel Depth: Down to and including healthy tissue and in the subcutaneous layer Percentage of wound debrided: 100 Instrument Used: 7mm curette Tissue Removed: Slough and devitalized tissue Severity: Fat Layer Exposed Amount of bleeding with debridement: Mild Bleeding Controlled with: Pressure Patient tolerated procedure: Patient tolerated procedure well Post-Debridement Measurements and Additional Note: Post-Debridement Measurements/Treatment - Nurse 1 - General Ulcer Assessment Start: 08/25/25 08:06 Freq: Status: Active Protocol: JANNY Activity Type Activity Date Activity User E-sign Co-sign Detail Recorded Client Recorded Date Recorded By Document 08/25/25 08:07 TS [id number] 08/25/25 08:23 TS Document 08/31/25 11:43 RB [id number] 08/31/25 11:45 RB 08/25/25 08/31/25 08:07 11:43 - Today's Visit Information Type of service Initial Visit Follow-up Visit (Physician/INSPECTOR [facility] ) Arrival Mode Ambulatory Ambulatory Transfer Assistance None Patient Identification Verified (Name & Yes Yes ) Patient Requires Transmission-Based No No Precautions Safety Precautions Fall Prevention Height and Weight Height 5 ft 9 in Weight 240 lb Weight in Pounds 240.0 lbs Weight Measurement Method Estimated by Patient Body Mass Index (BMI) 35.4 35.4 BMI Classification Obese Obese Vital Signs Temperature (97.8 F-99.1 F) 98.2 F 97 F L Temperature Source Oral Temporal Pulse Rate (60-100) 93 87 Pulse Location Monitor Monitor Respiratory Rate (12-18) 16 18 Respiratory rate source Observation Observation Oxygen Delivery Method Room Air Room Air Blood Pressure (90/60-120/80) 125/71 H 126/67 H Blood Pressure Mean (mm Hg) 89 86 Source Monitor Monitor Position Sitting Semi-Fowlers Blood Pressure Location Left Arm Left Arm History Since Last Visit- (Skip if this is Patient's initial visit) Have you changed medications since your No last visit? Any new allergies or adverse reactions No Had a fall/change in ADL's that may No increase risk of falls Signs or symptoms of abuse and/or No neglect since last visit Have you been in the hospital since your No last visit? Has dressing in place as prescribed Yes Has compression in place as prescribed Yes Has offloadiing in place as prescribed N/A Experienced any changes in pain level or No management Left Footwear Regular Shoe Regular Shoe Right Footwear Regular Shoe Regular Shoe Pain Scale: 0-10 Numeric Is Patient Pain Free? Yes No LLE -Description Aching -Intensity 3 -Duration (hours) Acute -Pain Behavior Guarding, Irritability, Withdrawal from Touch -Pain Aggravating Factors ADL's -Alleviating Factors/Interventions Medication -Effectiveness of Alleviating Factor/ Moderately Intervention effective Lower Extremity Assessment/ Foot Assessment/ Toe Nail Assessment Left -Polpliteal Pulses Palpable Yes -Posterior Tibial Palpable Yes -Dorsalis Pedis Palpable Yes -Extremity Color Normal -Hair Growth on Legs Yes -Hair Growth on Toes Yes -Temperature of Extremity Warm -Capillary Refill Less than 3 Seconds -Other Deformity No -Prior Foot Ulcer No -Charcot Joint No -Prior Amputation No -Thick No -Discolored No -Deformed No -Improper Length & Hygeine No Neuropathy Assessment Feet - Top Side and Bottom <Entered> (a) Communication Assessment Communication Instructor Required No Able to Read Yes Able to Write Yes Communication Tools None Caregiver Communication Skills No Impairment Impairment Right Hearing Abillity Normal Left Hearing Abillity Normal Visual Assistive Devices Glasses Teaching Assessment Preferences Verbal, Demonstration Barriers to Learning None Readiness To Learn Excellent Willingness to Engage in Self Management High Activies Readiness to Engage in Self Management High Activities Anxiety Level Calm Cooperation Cooperative Perception Coherent Interest in Health Problem Asks Questions Education Importance Acknowledges Need Does Patient Smoke tobacco or other No substances Functional Assessment Recent Decline in Ability to Perform Denies Any Declines Culture/Synagogue/Director Of Sports Medicine Cultural/Synagogue Needs that may affect No Treatment Plan Would you allow our hospital secondary set up man to No meet you for the purpose of spiritual/ emotional support? Director Of Sports Medicine to contact place of evangelical No (a) 1 - + WC - Nurse 1 - General Ulcer Measurement Start: 08/25/25 08:06 Freq: Status: Active Protocol: Activity Type Activity Date Activity User E-sign Co-sign Detail Recorded Client Recorded Date Recorded By Document 08/25/25 08:07 TS [id number] 08/25/25 08:23 TS Document 08/31/25 11:43 RB [id number] 08/31/25 11:45 RB 08/25/25 08/31/25 08:07 11:43 Wound Center Nurse 1 #1 LLE ANTERIOR -Combined with other wound No No -Current Size (cm) - Length 5.5 2 -Current Size (cm) - Width 3 1 -Current Size (cm) - Depth 0.1 0.2 -Total Square Cm 16.5 2 -Date of Last Picture (Recall this 08/25/25 08/31/25 field) -Photo Taken Yes Yes -Tunneling No -Undermining/Tunneling No No -Circular Undermining No No -Exudate Amt Medium Medium -Exudate Type Yellow/Green Serosanguineous -Wound Margin Distinct, Distinct, Outline Outline Attached Attached -Granulation Amt Small (1-33%) -Granulation Quality [place] -Slough/Fibrin Yes -Necrosis Amt Large (67-100%) Large (67-100%) -Necrotic Tissue Type Adherent Slough Adherent Slough -Structure Exposed Fascia N/A -Texture (Becca-wound Skin Appearance) Assessed, Assessed Excoriation -Moisture (Becca-wound Skin Appearance) Assessed Assessed -Color (Becca-wound Skin Appearance) Assessed Assessed, Erythema, Hemosiderin Staining -Temperature (Becca-wound Skin No Abnormality No Abnormality Appearance) (Pt Warm) (Pt Warm) -Tenderness on Palpation (Becca-wound No Skin Appearance) -Ulcer Cleansing Soap and Water Wound Cleanser -Foul Odor after Cleansing No No -Anesthetic Used 5% Lidocaine 4% Lidocaine Gel Solution,5% Lidocaine Gel Lower Limb Edema Present Yes Point of measurement (cm from the medial 37 instep) Point of Measurement (cm from the medial 23 instep) Left Calf (cm) 42 Point of measurement (cm from the medial 43 instep) Left Ankle (cm) 26 Point of Measurement (cm from the medial 27 instep) WC - Nurse 2 - General Ulcer CM Notes Start: 08/25/25 08:06 Freq: Status: Active Protocol: Activity Type Activity Date Activity User E-sign Co-sign Detail Recorded Client Recorded Date Recorded By Document 08/25/25 08:48 GM [id number] 08/25/25 09:00 GM Document 08/31/25 11:58 GM(2) [id number] 08/31/25 12:04 GM(2) 08/25/25 08/31/25 08:48 11:58 Wound Center Nurse 2 #1 LLE ANTERIOR -Time 08:48 11:59 -Correct Patient Yes Yes -Correct Side, Site, Position Yes Yes -Correct Procedure Yes Yes -Procedure Performed Yes Yes -Type of Procedure Debridement Debridement -Clinical Debridement Subcutaneous Subcutaneous -Tissue Removed Subcutaneous Subcutaneous -Post Debridement (cm) - Length 2.0 5.2 -Post Debridement (cm) - Width 2.0 2.5 -Post Debridement (cm) - Depth 1.0 0.8 -Total Square (Post) (cm) 4.00 13.00 -Area of Debridement (cm) - Length 2.0 5.2 -Area of Debridement (cm) - Width 2.0 2.5 -Total Square (Area) (cm) 4.00 13.00 -Tunneling Yes No -Tunneling Position (O'clock) 12 -Tunneling Distance (cm) 4 -Undermining/Tunneling No -Circular Undermining Yes No -Wound/Ulcer Outcome Not Healed Not Healed -Ulcer Cleansing Rinsed/ Rinsed/ Irrigated with Irrigated with Saline Saline -Foul Odor after Cleansing No No -Bioengineered Tissue No No -Bleeding Controlled with Pressure Pressure -Treatment Response Procedure Procedure Tolerated Well Tolerated Well -Offloading No -Debridement - Subq, 1st 20sq cm Yes Yes Pain Scale: 0-10 Numeric Is Patient Pain Free? Yes Yes [id number] - Nurse 3 - General Ulcer D/C NN Start: 08/25/25 08:06 Freq: Status: Active Protocol: Activity Type Activity Date Activity User E-sign Co-sign Detail Recorded Client Recorded Date Recorded By Document 08/25/25 09:31 [id number] 08/25/25 09:32 08/25/25 09:31 Wound Care Center Nurse 3 #1 LLE ANTERIOR -Ulcer Cleansing Rinsed/ Irrigated with Saline -Primary Dressing Applied Aquacel AG 4x4, NonAdherent Contact Layer -Other Dressing ABD -Primary Dressing Covered/Secured with Secured with Tape -Aquacel AG 4x4 1 BLE -Tubular Bandage Double Layer -Size of Tubigrip Used Size E -Size E ($) 2 Pain Scale: 0-10 Numeric Is Patient Pain Free? Yes WC - Visit Discharge Discharge Condition Stable Ambulatory Status Ambulatory Transportation Private Auto Medication Reconcilliation completed & No provided to patient/care provider Clinical Summary of Care Provided Yes Assessment/Plan Assessment/Plan (1) Ulcer of left lower extremity with fat layer exposed: CODE(S): L97.922 - Non-pressure chronic ulcer of unspecified part of left lower leg with fat layer exposed PLAN: Wash left lower leg with antibacterial soap and water apply Aquacel Ag to wound base moistened with Adaptic over top Bulky dressing of gauze and ABD with Mel. And double layer Tubigrip to the left leg For his itchiness on his left leg I suggested he take Zyrtec 2 times a day morning and night He is to stop using the Silvadene cream on good skin. Follow-up with his regular provider in 1 week (2) Edema of left lower extremity: CODE(S): R60.0 - Localized edema (3) History of DVT of lower extremity: CODE(S): Z86.718 - Personal history of other venous thrombosis and embolism (4) Type 2 diabetes mellitus: CODE(S): E11.9 - Type 2 diabetes mellitus without complications QUALIFIERS: Diabetes mellitus long term care social worker insulin use: without long term care social worker use Diabetes mellitus complication status: with circulatory complication Diabetes mellitus complication detail: with other circulatory complications Qualified Code(s): E11.59 - Type 2 diabetes mellitus with other circulatory complications
--- NOTE | 2025-09-06 13:00 | WC ---
PHOTO: LEFT ANT LEG 08/31/25
== END 2025-09-07 23:59 | disposition home or self-care (01) ==
LOC: WC 11:30
PROVIDERS: PCP Nurse Practitioner Adult Health; Referring Provider Nurse Practitioner Adult Health; Visit Provider Internal Medicine
DX: E11.622 Type 2 diabetes mellitus with other skin ulcer (principal); L97.922 Non-pressure chronic ulcer of unspecified part of left lower leg with fat layer exposed; B95.4 Other streptococcus as the cause of diseases classified elsewhere; I10 Essential (primary) hypertension; E78.5 Hyperlipidemia, unspecified; R60.0 Localized edema; Z79.01 Long term (current) use of anticoagulants; Z86.718 Personal history of other venous thrombosis and embolism; Z79.84 Long term (current) use of oral hypoglycemic drugs; Z79.899 Other long term (current) drug therapy
CPT/HCPCS: 11042; 87070; 87075; 87077; 87205; 93923; 93970; 99213; G0463